=== PATIENT | female | born 1935 | race Caucasian/White ===

== ENCOUNTER → 2021-12-17 | Outpatient (CLI) | payer MEDICARE ==
[~2021-12-17] MED LIST: LIQUID POLIBAR PLUS 105% w/v 750ML BTL As Ordered ONE
== END ==
LOC: M RAD 09:30
PROVIDERS: ATTEND Internal Medicine Gastroenterology
DX: K58.1 Irritable bowel syndrome with constipation (principal)

== ENCOUNTER 2022-02-20 10:46 | Day surgery (SDC) | payer MEDICARE ==
[~2022-02-20] VITALS: Ht 154.9 cm; Wt 58.2 kg
[~2022-02-20 10:46] MED LIST changes: +ATOR1TAB19; +B-122500 PO; +CALCTAB89 PO; +CARV3.12; +CLOP75TA2; +DETR4CAP PO; +FAMO1TAB11; +FISH1000 PO; -LIQUID POLIBAR PLUS 105% w/v 750ML BTL As Ordered ONE; +MIRA3350 PO; +NS 1,000 ML IV ONE; +PRES1CHW PO; +VITA100093 PO
[2022-02-20] MEDS ORDERED: propofoL 200 MG/20 ML VIAL As Ordered ONE (11:07)
[2022-02-20] MEDS ORDERED: LIDOCAINE 2% 100MG/5ML SDV (FOR ANES.) As Ordered ONE (11:07)
[2022-02-20] MEDS ORDERED: fentaNYL 100 MCG/2 ML INJECTION As Ordered ONE (11:31)
[2022-02-20 12:50] VITALS: BP 144/67
== END 2022-02-20 13:04 | disposition home or self-care (01) ==
LOC: M OPP 10:46
PROVIDERS: ATTEND Internal Medicine Gastroenterology
DX: R10.13 Epigastric pain (principal); Z79.02 Long term (current) use of antithrombotics/antiplatelets; Z79.899 Other long term (current) drug therapy; Z88.1 Allergy status to other antibiotic agents; Z88.8 Allergy status to other drugs, medicaments and biological substances; Z88.2 Allergy status to sulfonamides; Z86.73 Personal history of transient ischemic attack (TIA), and cerebral infarction without residual deficits; Z80.0 Family history of malignant neoplasm of digestive organs; Z80.1 Family history of malignant neoplasm of trachea, bronchus and lung
CPT/HCPCS: 43235; J3010

== ENCOUNTER → 2022-06-17 | Outpatient (REF) | payer MEDICARE ==
[~2022-06-17] MED LIST changes: -ATOR1TAB19; +ATOR1TAB19 PO; -CARV3.12; +CARV3.12 PO; -CLOP75TA2; +CLOP75TA2 PO; -NS 1,000 ML IV ONE
[2022-06-17 14:47] LABS: APPEARANCE, URINE MANUAL CLEAR (CLEAR); COLOR, URINE MANUAL LT YELLOW (YELLOW)
[2022-06-17 14:49] LABS: BILIRUBIN, URINE MANUAL NEGATIVE (NEGATIVE); BLOOD URINE MANUAL POSITIVE (NEGATIVE); GLUCOSE, URINE (UA) MANUAL NEGATIVE (NEGATIVE); KETONE, URINE MANUAL NEGATIVE (NEGATIVE); LEUKOCYTE ESTERASE, URINE MAN NEGATIVE (NEGATIVE); NITRITE, URINE MANUAL NEGATIVE (NEGATIVE); PROTEIN, URINE MANUAL NEGATIVE (NEGATIVE); SPECIFIC GRAVITY,URINE MANUAL 1.015 (1.002-1.035); UROBILINOGEN, URINE MANUAL NORMAL (NORMAL)
[2022-06-17 15:59] LABS: BACTERIA, URINE NONE SEEN; HYALINE CAST, URINE NONE SEEN /lpf (0-1); SQUAMOUS EPITHELIAL CELL URINE SMALL AMOUNT /hpf (SMALL AMT); WBC, URINE NONE SEEN /hpf (0-3)
== END ==
LOC: M SMT 13:19
PROVIDERS: ATTEND Nurse Practitioner Women's Health
DX: R35.0 Frequency of micturition (principal)

== ENCOUNTER → 2024-04-13 | Outpatient (REF) | payer MEDICARE ==
[2024-04-13 14:05] LABS: APPEARANCE, URINE HAZY (CLEAR); BACTERIA, URINE AUTO NEGATIVE (NEGATIVE); BILIRUBIN, URINE AUTO NEGATIVE (NEGATIVE); BLOOD, URINE BLOOD NEGATIVE (NEGATIVE); COLOR, URINE YELLOW (YELLOW); GLUCOSE, URINE (UA) AUTO NEGATIVE (NEGATIVE); KETONE, URINE AUTO NEGATIVE (NEGATIVE); LEUKOCYTE ESTERASE, URINE AUTO NEGATIVE (NEGATIVE); NITRITE, URINE AUTO NEGATIVE (NEGATIVE); PROTEIN, URINE AUTO NEGATIVE (NEGATIVE); RBC, URINE AUTO 1 /HPF (0-3); SPECIFIC GRAVITY URINE AUTO 1.014 (1.002-1.035); SQUAMOUS EPITHELIAL CELL UR AU 0 /HPF (0-6); UROBILINOGEN, URINE AUTO 0.2 mg/dL (0.0-2.0); WBC, URINE AUTO 1 /HPF (0-3)
== END ==
LOC: M SMT 13:07
PROVIDERS: ATTEND Physician Assistant
DX: R35.0 Frequency of micturition (principal)